=== PATIENT | male | born 1965 | race Hispanic/Latino ===

== ENCOUNTER → 2025-01-06 | Day surgery (SDC) | payer OTHER ==
[~2025-01-06] MED LIST: ASHWAGANDHA62.5 MG PO; BENICAR20 MG PO; GLIMEPIRIDE2 MG PO; GLUCAGON FOR INJ 1 MG VIAL ONE; JARDIANCE10 MG PO; LIDOCAINE HCL 2% LOCAL INJ 5 ML SDV VIAL INJ ONE; MAGNESIUM OXID400 MG PO; METFORMIN HCL500 M2 PO; METOCLOPRAMIDE HCL 10 MG/2ML VIAL ONE; PROPOFOL IV EMULSION 10 MG/ML 20 ML VIAL ONE; PROPOFOL IV EMULSION 50 ML IV ONE; TUMERSAID TABL1 EACH PO; VITAMIN D250 MCG PO
[2025-01-06] MEDS: LACTATED RINGER'S 1,000 ML ONE (11:14)
[2025-01-06 12:37] VITALS: TEMP 97.6
[2025-01-06 13:05] VITALS: BP 105/74; PULSE 73; RESP 16; O2SAT 97
== END | disposition home or self-care (01) ==
LOC: OR 08:00
PROVIDERS: ATTEND Internal Medicine Gastroenterology
DX: Z12.11 Encounter for screening for malignant neoplasm of colon (principal); D12.0 Benign neoplasm of cecum; D12.2 Benign neoplasm of ascending colon; K58.9 Irritable bowel syndrome, unspecified; K57.30 Diverticulosis of large intestine without perforation or abscess without bleeding; K64.8 Other hemorrhoids; K21.9 Gastro-esophageal reflux disease without esophagitis; I10 Essential (primary) hypertension; E11.9 Type 2 diabetes mellitus without complications; N40.0 Benign prostatic hyperplasia without lower urinary tract symptoms; Z79.84 Long term (current) use of oral hypoglycemic drugs; Z79.899 Other long term (current) drug therapy; Z68.25 Body mass index [BMI] 25.0-25.9, adult; Z71.3 Dietary counseling and surveillance
CPT/HCPCS: 36415; 45385; 82948; 93005; J1610; J2003; J2704 ×2; J2765; J7121